=== PATIENT | female | born 1930 | race Caucasian/White ===

== ENCOUNTER 2017-04-04 15:32 | Inpatient (IN) | payer OTHER, BC ==
[~2017-04-04] VITALS: Ht 162.6 cm; Wt 69.8 kg
--- NOTE | 2017-04-04 16:05 | NUR ---
PT MOVED TO BED 7
--- NOTE | 2017-04-04 16:10 | NUR ---
PT HERE WITH C/C OF AFIB. DENIES CHEST PAIN OR SOB, HOWEVER PT REPORTS HEARTS "FEELS FUNNY", DENIES FEELING PALPITATION. PT IS AAOX4, RESP EVEN AND UNLABORED, RA. PT REPORTS SEEING PCP TODAY FOR SAME AND WAS TOLD BY PCP TO GO TO ER. DENIES PAIN, DENIES N/V/D.
--- NOTE | 2017-04-04 16:15 | NUR ---
DR MARTINEZ AT BEDSIDE FOR MSE
[2017-04-04 16:17] LABS: BASOPHIL % 1.1 % (0-2); PLATELET COUNT 190 x10^3mcL (130-400)
[2017-04-04 16:22] LABS: RED CELL DISTRIBUTION WIDTH 15.1 % (11.5-14.5)
[2017-04-04 16:23] LABS: CALCIUM 9.4 mg/dL (8.5-10.1); CARBON DIOXIDE 25.2 mmol/L (21-32); CHLORIDE SERUM 103 mmol/L (98-107); GLUCOSE SERUM 133 mg/dL (74-106); SODIUM SERUM 140 mmol/L (136-145)
[2017-04-04 16:29] LABS: ALBUMIN 3.5 g/dL (3.4-5.0); ALKALINE PHOSPHATASE 54 U/L (46-116); ALT/SGPT 29 U/L (14-59); AST/SGOT 33 U/L (15-37); BILIRUBIN TOTAL 0.49 mg/dL (0.20-1.00); TOTAL PROTEIN, SERUM 7.1 g/dL (6.4-8.2)
--- NOTE | 2017-04-04 16:29 | NUR ---
RADIOLOGY AT BEDSIDE FOR PCXR
[2017-04-04 16:56] LABS: MAGNESIUM 1.6 mg/dL (1.8-2.4); T4(THYROXINE) 7.8 ug/dL (4.7-13.3)
--- NOTE | 2017-04-04 17:24 | NUR ---
PT REMAINS IN STABLE CONDITION WITH AFIF RATE OF 129. NAD NOTED. DR MARTINEZ MADE AWARE AND PLACED ORDER FOR ADDITIONAL 10MG OF CARDIZEM
--- NOTE | 2017-04-04 18:30 | NUR ---
PT IN STABLE CONDITION. RESP EVEN AND UNLABORED, RA. NAD NOTED. DENIES PAIN OR DISCOMFORT
--- NOTE | 2017-04-04 19:30 | NUR ---
PT SITTING UP IN BED, A&OX4,NO ACUTE DSITRESS NOTED, RESP EVEN AND UNLABORED, SPEECH IS CLEAR AND APPROPRIATE ON FULL CM.
[2017-04-04] MEDS ORDERED: HYDROCHLOROTH12.5 M2 (19:54)
[2017-04-04] MEDS ORDERED: TOPROL XL25 MG PO (19:54)
[2017-04-04] MEDS ORDERED: K-VESCENT25 MEQ PO (19:54)
[2017-04-04] MEDS ORDERED: ASPIR 8181 MG PO (19:55)
[2017-04-04] MEDS ORDERED: MASON NATURAL1000 IU PO (19:55)
[2017-04-04] MEDS ORDERED: EVAMIST1.53 MG/Ac MC (19:55)
[2017-04-04] MEDS ORDERED: LOVAZA1 G1 PO (19:55)
[2017-04-04] MEDS ORDERED: MULTI-VITAMINS1 TAB (19:55)
[2017-04-04] MEDS ORDERED: VITAMIN B121000 MCG PO (19:55)
[2017-04-04] MEDS ORDERED: VERAMYST27.5 MCG/1 TOP (19:56)
--- NOTE | 2017-04-04 20:25 | NUR ---
REPORT GIVEN TO DAVID TARIQ TO ASSUME CARE OF PT.
--- NOTE | 2017-04-04 20:30 | NUR ---
PT TRANSFERRED TO [facility] BED 250B VIA [facility]. PT ON , NURSE PAUL AND EMT LIVINGSTON AT PT SIDE AT TIME OF TRANSFER. PT TRANSFERRED WITHOUT INCIDENCE.
[2017-04-04 20:42] VITALS: BP 175/104
--- NOTE | 2017-04-04 20:45 | NUR ---
REC'D AAOX4, SPEECH, CLEAR. DENIES DIZZINES AND EL AND PAIN. ON RA, NO SOB NOTED, ATTACHED TELE 2, NOTED AFIB AT 130'S. PAGED DR. MARIE. IV SITE WNL. AMBULATORY WITH STEADY GAIT. ORIENTED TO ROOM AND SURROUNDINGS. CALL LIGHT WITHIN REACH, PROVIDED REPORT TO DINO TARIQ FOR CONTINUITY OF CARE.
[2017-04-04 20:47] LABS: PHOSPHOROUS 3.5 mg/dL (2.5-4.9)
--- NOTE | 2017-04-04 20:47 | NUR ---
INFORMED DR. MARIE OF ELEVATED BP AND HR.
[2017-04-04 20:48] LABS: CHOLESTEROL/HDL RATIO 1.9
[2017-04-04 23:25] VITALS: BP 127/72
--- NOTE | 2017-04-04 23:26 | NUR ---
IVF NS INFUSING @ 100CC/HR IV ACCESS @ LAC PATENT NON INFIL, ALL MEDS GIVEN ORDERED, PT DENIES CP, PRESSURE AND PALPITATIONS AT THIS TIME, RECHECKED BP 127/72; HR 94, COMFORTABLE AND CALM AT THIS TIME, CONT TO MONITOR.
[2017-04-05 05:16] VITALS: BP 122/75
--- NOTE | 2017-04-05 05:58 | NUR ---
PT SLEPT WELL DURING THE SHIFT DENIES PALPITATIONS NOR CP REMAINED AFIB IN THE MONITOR HR @ 90'S, BP 122/75, IVF INFUSING WELL, CONT TO MONITOR.
[2017-04-05 07:47] LABS: BASOPHIL % 0.3 % (0-2); PLATELET COUNT 154 x10^3mcL (130-400)
[2017-04-05 08:05] LABS: CALCIUM 8.3 mg/dL (8.5-10.1); CARBON DIOXIDE 26.3 mmol/L (21-32); CHLORIDE SERUM 109 mmol/L (98-107); CREATININE SERUM 0.9 mg/dL (0.6-1.0); GLUCOSE SERUM 113 mg/dL (74-106); MAGNESIUM 1.7 mg/dL (1.8-2.4); POTASSIUM SERUM 3.6 mmol/L (3.5-5.1); SODIUM SERUM 142 mmol/L (136-145)
--- NOTE | 2017-04-05 08:17 | NUR ---
AAO TIMES 4. TELE # 2 A FIB 119. VS'S STABLE. NO SOB. O2 SAT ON RA 96%. BS'S ACTIVE TIMES 4. +1 EDEMA BLE. PERIPHERAL PULSES PALPABLE. DENIES DISCOMFORT. PLEASANT, COOPERATIVE.
--- NOTE | 2017-04-05 09:00 | NUR ---
DR KASPER AND THE MEDICINE TEAM MADE ROUNDS THIS AM WITH PT. THE PLAN TODAY IS TO HAVE DR NICKERSON THE USABILITY STRATEGIST SEE HER TODAY.
[2017-04-05 09:20] VITALS: BP 106/69
--- NOTE | 2017-04-05 12:08 | NUR ---
AT [address] RUBI AND ASKED IF I SHOULD GIVE THE PT THE NEW MEDICATIONS DR MANCIA ORDERED, TOPROL XL 50, SHE HAD LOPRESSOR 25 THIS AM AND HER BP IS 106/69, HR 124. DR RUBI CALLED DR NICKERSON AND HE SAID TO GIVE IT ANYWAYS, HE IS AWARE OF THE BP.
[2017-04-05 13:30] VITALS: BP 123/82
[2017-04-05 17:40] VITALS: BP 126/93
--- NOTE | 2017-04-05 18:10 | NUR ---
AAO TIMES 4. TELE # 2 A FIB 114. NO C/O PAIN. NO SOB. WATCHING TV AND VISITING WITH FAMILY. AMBULATORY BRP WITHOUT DIFFICULTY. IV SITE LFA CDI. SCD'S AT BEDSIDE, BUT PT REFUSES TO WEAR THEM.
--- NOTE | 2017-04-05 20:43 | NUR ---
UP AND ABOUT, DENIES CP NOR PALPITATIONS, TELE #2 INPLACED RUNNING AFIB HR @ 90'S, IVF NS INFUSING @ 100CC/HR IV ACCESS @ LFA PATENT NON INFIL, REFUSED SCD'S FOR DVT PROPHYLAXIS, BLE +1 EDEMA PALPABLE PERIPHERAL PULSES, DENIES PAIN, ABD SOFT NON TENDER BS ACTIVE, HAS REGULAR BM, SHIFT ASSESSMENT DONE, ATTENDED NEEDS, CALL LIGHT AT REACH, INFORMED CURRENT TX PLAN, CONT TO MONITOR
[2017-04-05 22:22] VITALS: BP 117/76
--- NOTE | 2017-04-06 02:35 | NUR ---
ASLEEP NO S/SX OF PAIN OR DISCOMFORTS IVF INFUSING WELL, AFIB IN THE MONITOR HR @ 90'S, CHECKED AT INTERVALS.
[2017-04-06 06:12] VITALS: BP 136/82
--- NOTE | 2017-04-06 06:41 | NUR ---
AWAKE DUE MEDS GIVEN, PT VERBALIZED HAVING GOOD SLEEP LAST NIGHT, DENIES PAIN, RUNNING AFIB IN THE MONITOR NO CP OR PRESSURE, NO SIGNIFICANT CHANGES, WILL ENDORSE TO INCOMING SHIFT FOR F/U CARE.
[2017-04-06 07:01] LABS: CARBON DIOXIDE 25.7 mmol/L (21-32); CHLORIDE SERUM 110 mmol/L (98-107); CREATININE SERUM 0.8 mg/dL (0.6-1.0); GLUCOSE SERUM 98 mg/dL (74-106); PHOSPHOROUS 2.9 mg/dL (2.5-4.9); SODIUM SERUM 145 mmol/L (136-145)
--- NOTE | 2017-04-06 07:20 | NUR ---
AAO X4.DENIES ANY PAIN/DISCOMFORT.LUNGS CLEAR.ON AFIB ON THE MONITOR GH=396.IVF NS GOING AT 150 ML/HR INFUSING WELL.BLE WITH 2+ EDEMA.ELEVATED FEET ON A PILLOW.CALL LIGHT WITHIN REACH.INSTRUCTED TO CALL FOR ANY PAIN/DISCOMFORT.PT VERBALIZES UNDERSTANDING.WILL CONTINUE TO MONITOR PT.
--- NOTE | 2017-04-06 09:50 | NUR ---
AND MEDICINE TEAM AT BEDSIDE,INFORMED PT ABOUT THE PLAN OF CARE.PT WILL GO HOME TODAY.PT COOPERATIVE WITH THE PLAN OF CARE
[2017-04-06 12:54] VITALS: BP 101/72
[2017-04-06] MEDS ORDERED: ELIQUIS2.5 MG PO ×3 (17:04→19:25)
[2017-04-06] MEDS ORDERED: TOP50 PO ×3 (17:09→19:25)
[2017-04-06] MEDS ORDERED: CAR60 PO ×3 (17:10→19:25)
[2017-04-06 17:19] VITALS: BP 129/73
[2017-04-06 17:26] VITALS: BP 133/97
--- NOTE | 2017-04-06 18:15 | NUR ---
PT D/C TO HOME IV AND MONITOR D/C'D.DISCHARGE INSTRUCTION GIVEN.PT VERBALIZES UNDERSTANDING.WENT DOWN AMBULATORY ACCOMPANIED BY DAUGHTER AND COUNTY SHERIFF.
== END 2017-04-06 18:09 | disposition home or self-care (01) | DRG 308 ==
LOC: ED 15:32 → DU 20:05
PROVIDERS: Emergency Medicine; Student in an Organized Health Care Education/Training Program; ADMIT Family Medicine
DX: I48.91 Unspecified atrial fibrillation (principal); N17.0 Acute kidney failure with tubular necrosis; I50.43 Acute on chronic combined systolic (congestive) and diastolic (congestive) heart failure; E83.42 Hypomagnesemia; I10 Essential (primary) hypertension; I34.0 Nonrheumatic mitral (valve) insufficiency; I37.1 Nonrheumatic pulmonary valve insufficiency; Z96.641 Presence of right artificial hip joint; Z79.82 Long term (current) use of aspirin; Z68.26 Body mass index [BMI] 26.0-26.9, adult; Z87.891 Personal history of nicotine dependence
CPT/HCPCS: 83880; J3475; J3490; J7030; J7040

== ENCOUNTER → 2017-04-17 | Outpatient (CLI) | payer OTHER, BC ==
[~2017-04-17] MED LIST: ASPIR 8181 MG PO; CAR60 PO; ELIQUIS2.5 MG PO; EVAMIST1.53 MG/Ac MC; HYDROCHLOROTH12.5 M2; K-VESCENT25 MEQ PO; LOVAZA1 G1 PO; MASON NATURAL1000 IU PO; MULTI-VITAMINS1 TAB; TOP50 PO; TOPROL XL25 MG PO; VERAMYST27.5 MCG/1 TOP; VITAMIN B121000 MCG PO
[2017-04-17 09:23] LABS: CARBON DIOXIDE 26.9 mmol/L (21-32); CHLORIDE SERUM 107 mmol/L (98-107); GLUCOSE SERUM 105 mg/dL (74-106); MAGNESIUM 1.5 mg/dL (1.8-2.4); POTASSIUM SERUM 4.1 mmol/L (3.5-5.1); SODIUM SERUM 143 mmol/L (136-145)
== END | disposition home or self-care (01) ==
LOC: LB 08:47
PROVIDERS: Internal Medicine Interventional Cardiology
DX: I48.2 Chronic atrial fibrillation (principal)

== ENCOUNTER 2017-05-19 10:33 | Day surgery (SDC) | payer OTHER, BC ==
[~2017-05-19] VITALS: Ht 162.6 cm; Wt 68.0 kg
[2017-05-19 11:19] LABS: BASOPHIL % 0.4 % (0-2); PLATELET COUNT 227 x10^3mcL (130-400); RED CELL DISTRIBUTION WIDTH 13.7 % (11.5-14.5)
[2017-05-19 11:26] VITALS: BP 155/83
[2017-05-19 11:27] LABS: CALCIUM 9.1 mg/dL (8.5-10.1); CARBON DIOXIDE 29.5 mmol/L (21-32); CHLORIDE SERUM 105 mmol/L (98-107); GLUCOSE SERUM 106 mg/dL (74-106); POTASSIUM SERUM 4.1 mmol/L (3.5-5.1); SODIUM SERUM 143 mmol/L (136-145)
[2017-05-19 13:55] VITALS: BP 140/61
--- NOTE | 2017-05-19 13:55 | NUR ---
RECEIVED PATIENT POST CARDIOVERSION. ALERT, AWAKE AND ORIENTED. RESP. REG. AND EVEN WITH OUT DISTRESS NOTED. DENIES CHEST PAIN AT THIS TIME. NO SOB NOTED. NO C/O OR DISTRESS NOTED. DAUGHTER AT THE BEDSIDE.
[2017-05-19 14:10] VITALS: BP 148/77
[2017-05-19 14:25] VITALS: BP 154/70
[2017-05-19 14:45] VITALS: BP 139/57
[2017-05-19 15:10] VITALS: BP 134/77
--- NOTE | 2017-05-19 15:10 | NUR ---
DISCHARGED A/O VIA W/C AFTER RECEIVING INSTRUCTIONS WITH VERBAL RESPONSE OF UNDERSTNDING. TOLERATED LUNCH WELL. RESP. REG. AND EVEN WITH OUT DISTRESS NOTED. DENIES CHEST PAIN THIS SHIFT. AMBULATED TO THE BATHROOM WITH STAND-BY ASSIST, AJ. WELL. NO C/O OR DISTRESS NOTED.
== END 2017-05-19 15:10 | disposition home or self-care (01) ==
LOC: DS 10:33 → OR 12:30 → DS 15:10
PROVIDERS: Internal Medicine Interventional Cardiology
PROC: 5A2204Z Restoration of Cardiac Rhythm, Single (ICD-10-PCS; principal; 2017-05-19 12:30)
DX: I48.2 Chronic atrial fibrillation (principal); I10 Essential (primary) hypertension
CPT/HCPCS: J2250; J3010; J3490; J7040

== ENCOUNTER 2019-02-21 14:17 | Emergency (ER) | payer OTHER, BC ==
[~2019-02-21] VITALS: Ht 162.6 cm; Wt 68.0 kg
[2019-02-21 14:21] VITALS: Ht 162.6 cm; Wt 68.0 kg
[2019-02-21 15:05] LABS: BASOPHIL % 1.1 % (0-2); PLATELET COUNT 250 x10^3mcL (130-400)
[2019-02-21 15:06] LABS: CALCIUM 9.9 mg/dL (8.5-10.1); CARBON DIOXIDE 26.6 mmol/L (21-32); CHLORIDE SERUM 104 mmol/L (98-107); CREATININE SERUM 0.8 mg/dL (0.6-1.0); GLUCOSE SERUM 130 mg/dL (74-106); POTASSIUM SERUM 3.5 mmol/L (3.5-5.1); SODIUM SERUM 143 mmol/L (136-145)
[2019-02-21 15:08] LABS: microscopic required? NO
[2019-02-21 15:15] LABS: urine erythrocyte NEGATIVE (NEGATIVE)
[2019-02-21 15:21] LABS: AMPHETAMINE QUAL UR NONE DETECTED (See below)
[2019-02-21 15:22] LABS: ALKALINE PHOSPHATASE 50 U/L (46-116); ALT/SGPT 28 U/L (14-59); AMYLASE 35 U/L (25-115); AST/SGOT 15 U/L (15-37); BILIRUBIN TOTAL 0.6 mg/dL (0.20-1.00); CHOLESTEROL 171 mg/dL (<200); HDL CHOLESTEROL 80 mg/dL (40-60); LIPASE 101 IU/L (73-393); T4(THYROXINE) 11.8 ug/dL (4.7-13.3); TOTAL PROTEIN, SERUM 7.4 g/dL (6.4-8.2)
[2019-02-21 16:34] VITALS: BP 146/70
== END 2019-02-21 16:34 | disposition home or self-care (01) ==
LOC: ED 14:17
PROVIDERS: Emergency Medicine
DX: S02.2XXA Fracture of nasal bones, initial encounter for closed fracture (principal); S00.83XA Contusion of other part of head, initial encounter; S09.8XXA Other specified injuries of head, initial encounter; I10 Essential (primary) hypertension; E78.00 Pure hypercholesterolemia, unspecified; E03.9 Hypothyroidism, unspecified; Z98.890 Other specified postprocedural states; Z90.710 Acquired absence of both cervix and uterus; Z88.8 Allergy status to other drugs, medicaments and biological substances; Z88.5 Allergy status to narcotic agent; Z91.018 Allergy to other foods; W18.30XA Fall on same level, unspecified, initial encounter; Y93.89 Activity, other specified; Y92.89 Other specified places as the place of occurrence of the external cause; Y99.8 Other external cause status
CPT/HCPCS: 36415; 83880; 90715